=== PATIENT | male | born 1945 | race Hispanic/Latino ===

== ENCOUNTER 2022-09-24 11:46 | Emergency (ER) | payer OTHER, MEDICARE ==
[~2022-09-24] VITALS: Ht 175.3 cm; Wt 97.5 kg
[2022-09-24 14:20] VITALS: BP 126/72
== END 2022-09-24 14:24 | disposition home or self-care (01) ==
LOC: EDH 11:46
DX: T16.1XXA Foreign body in right ear, initial encounter (principal); I10 Essential (primary) hypertension; E78.00 Pure hypercholesterolemia, unspecified; E11.9 Type 2 diabetes mellitus without complications; X58.XXXA Exposure to other specified factors, initial encounter; Y93.89 Activity, other specified; Y92.89 Other specified places as the place of occurrence of the external cause; Y99.8 Other external cause status